=== PATIENT | female | born 1980 | race Caucasian/White ===

== ENCOUNTER 2018-05-21 19:25 | Emergency (ER) | payer BC, MEDICAID | END 2018-05-21 21:45 | disposition home or self-care (01) | LOC: FTE 19:25 | DX: H66.91 Otitis media, unspecified, right ear (principal) | CPT/HCPCS: 99283 ==

== ENCOUNTER → 2018-10-28 | Emergency (ER) | payer BC ==
[2018-10-28] MEDS: IBUPROFEN 800 MG TAB PO (12:15)
== END | disposition home or self-care (01) ==
LOC: FTE 11:34
DX: M25.512 Pain in left shoulder (principal); M25.522 Pain in left elbow
CPT/HCPCS: 73030; 73080-LT; 99283-25